=== PATIENT | male | born 1950 | race Two or more races ===

== ENCOUNTER 2025-06-07 19:58 | Emergency (ER) | payer OTHER ==
[~2025-06-07] VITALS: Ht 177.8 cm; Wt 83.9 kg
[2025-06-07] MEDS ORDERED: FAMOtidine 10 MG/ML (4ML VIAL) IV ONE (21:15)
[2025-06-07] MEDS ORDERED: 0.9 % SODIUM CHLORIDE 1,000 ML IV ONE (21:15)
[2025-06-07] MEDS ORDERED: ONDANSETRON HCL 2 MG/ML VIAL IV ONE (21:15)
[2025-06-07] MEDS ORDERED: FAMOTIDINE/PF 20 MG/2 ML VIAL ONE (21:47)
[2025-06-07] MEDS ORDERED: ONDANSETRON HCL 2 MG/ML VIAL ONE (21:47)
[2025-06-07 23:20] LABS: BASO % 0.4 % (0.1-1.2); EOS # 0.04 (0.04-0.54); EOS % 0.4 % (0.7-7.0); LYMPH # 1.48 (1.18-3.74); LYMPH % 15.4 % (19.3-53.1); MEAN PLATELET VOLUME 11.00 fl (9.4-12.4); MONO # 0.59 (0.24-0.82); MONO % 6.1 % (4.7-12.5); NEUT # 7.42 (1.56-6.13); NEUT % 77.4 % (34.0-71.1); RED CELL DISTRIBUTION WIDTH 13.5 % (11.6-14.4)
[2025-06-07 23:31] LABS: ALT/SGPT 23.0 U/L (12-78); AST/SGOT 20.0 U/L (15-37); BILIRUBIN TOTAL 0.33 mg/dL (0.3-1.2); BUN CREA RATIO 14.0 (7.0-25.0); CREATININE SERUM 1.66 mg/dL (0.70-1.30); GFR 40.81; GLOBULINA 4.2 G/DL (2.4-3.5); GLUCOSE FASTING 138.0 mg/dL (65-100); OSMOLALITY SERUM 298.0 MOSM/KG (275-295)
[2025-06-07 23:42] LABS: COVID-19 AG NEGATIVE (NEGATIVE)
[2025-06-07] MEDS ORDERED: PROTONIX40 MG PO (23:52)
== END 2025-06-08 00:20 | disposition home or self-care (01) ==
LOC: ER 19:58
PROVIDERS: General Practice
DX: R11.10 Vomiting, unspecified (principal); Z20.822 Contact with and (suspected) exposure to COVID-19
CPT/HCPCS: 36415; 96365; 96366; 99282; J2405; J3490; J7030